=== PATIENT | female | born 1950 | race Native Hawaiian/Other Pacific Islander ===

== ENCOUNTER 2016-06-14 10:36 | Outpatient (CLI) | payer OTHER ==
[~2016-06-14 10:36] MED LIST: AMOX500C85 PO; ANORO ELLIPTA 61 AER IN; ASA LO-DOSE81 MG PO; BENZ100C8 PO; CEFU250T2 PO; CITALOPRAM20 MG PO; CLON1TAB18 PO; DICL1GEL2 TOP; FLUT0.05 NAS; FURO40TA93 PO; FUROSEMIDE80 MG PO; GABA300C2 PO; GLIP10TA55 PO; IMDUR30 MG PO; IPRA18AE INH; LANTUS100 MG/ML SC; LEVO0.0723 PO; NOVOLOG100 MG/ML SC; OMEPRAZOLE20 M1 PO; POTASSIUM CHLO20 MEQ PO; RANO500T PO; SERT100T PO; SIMV40TA57 PO; SPIRIVA IN; WARFARIN10 MG PO; WARFARIN7.5 MG PO; ZOCOR80 MG PO
== END 2016-06-14 19:32 | disposition home or self-care (01) ==
LOC: LABW 10:36
DX: R41.3 Other amnesia (principal)
CPT/HCPCS: 36415; 82607; 82746; 84443; 85651

== ENCOUNTER 2016-09-15 08:13 | Outpatient (CLI) | payer OTHER ==
[2016-09-16] MEDS ORDERED: AMIT10TA21 PO (09:16)
[2016-09-16] MEDS ORDERED: RANITIDINE 150150 MG PO (09:17)
[2016-09-16] MEDS ORDERED: ACYCLOVIR800 MG OR (09:18)
[2016-09-16] MEDS ORDERED: MECLIZINE25 MG OR (09:19)
[2016-09-16] MEDS ORDERED: FORTAMET500 MG PO (09:19)
[2016-09-16] MEDS ORDERED: TRULICITY0.75 MG/0. SC (09:25)
== END 2016-09-15 08:21 | disposition short-term general hospital (02) ==
LOC: AMB 08:13
DX: R07.89 Other chest pain (principal); R06.02 Shortness of breath
CPT/HCPCS: A0425; A0427

== ENCOUNTER 2016-09-16 08:24 | Observation (INO) | payer OTHER ==
[~2016-09-16] VITALS: Ht 170.2 cm; Wt 80.3 kg
[2016-09-16] VITALS (7 sets, daily range): BP systolic 131–174; BP diastolic 47–81; TEMP 97.7–98.5; Ht 170.2 cm; Wt 80.3 kg
[2016-09-16 08:34] LABS: PLATELET COUNT 214 K/uL (152-353)
[2016-09-16 08:43] LABS: POTASSIUM 4.1 mmol/L (3.6-5.2); SODIUM 139 mmol/L (136-145)
[2016-09-16 09:04] LABS: PARTIAL THROMBOPLASTIN TIME 32.2 SECONDS (24.5-33.6)
[2016-09-16] MEDS ORDERED: AMIT10TA21 PO (09:16)
[2016-09-16] MEDS ORDERED: RANITIDINE 150150 MG PO (09:17)
[2016-09-16] MEDS ORDERED: ACYCLOVIR800 MG OR (09:18)
[2016-09-16] MEDS ORDERED: FORTAMET500 MG PO (09:19)
[2016-09-16] MEDS ORDERED: MECLIZINE25 MG OR (09:19)
[2016-09-16] MEDS ORDERED: TRULICITY0.75 MG/0. SC (09:25)
--- NOTE | 2016-09-16 16:40 | NUR ---
[employer] SALES REPRESENTATIVE ENTERED PT'S ROOM TO DO EKG DUE AT 1600 AND PT SAID SHE DID NOT WANT AN EKG DONE BECAUSE THERE IS NOTHING WRONG WITH HER HEART AND SHE JUST WANTS TO GO HOME. NURSE WAS NOTIFIED AND GOING TO CALL DR. WALKER.
== END 2016-09-16 17:10 | disposition home or self-care (01) ==
LOC: ED 08:24 → MED/SURG 10:10
DX: R07.89 Other chest pain (principal); I51.7 Cardiomegaly; E11.9 Type 2 diabetes mellitus without complications
CPT/HCPCS: 36415; 80053; 82550; 82948; 84484; 85027; 85610; 85730; 93005; 99220; 99284; G0378; J1650

== ENCOUNTER 2016-10-08 07:52 | Outpatient (CLI) | payer OTHER ==
[~2016-10-08 07:52] MED LIST changes: +ACYCLOVIR800 MG OR; +AMIT10TA21 PO; +FORTAMET500 MG PO; +MECLIZINE25 MG OR; +RANITIDINE 150150 MG PO; +TRULICITY0.75 MG/0. SC
== END 2016-10-08 09:00 | disposition home or self-care (01) ==
LOC: MRI 07:52
DX: I65.22 Occlusion and stenosis of left carotid artery (principal)

== ENCOUNTER 2017-01-01 13:56 | Outpatient (CLI) | payer OTHER ==
[2017-01-01 14:18] LABS: PLATELET COUNT 220 K/uL (152-353)
[2017-01-01 14:25] LABS: POTASSIUM 4.5 mmol/L (3.6-5.2)
== END 2017-01-01 15:00 | disposition home or self-care (01) ==
LOC: LABW 13:56
PROVIDERS: Internal Medicine Hematology & Oncology
DX: I26.99 Other pulmonary embolism without acute cor pulmonale (principal)
CPT/HCPCS: 36415; 80053; 85027

== ENCOUNTER 2017-02-25 14:37 | Outpatient (CLI) | payer OTHER | END 2017-02-25 16:00 | disposition home or self-care (01) | LOC: MRI 14:37 | DX: R29.810 Facial weakness (principal) ==

== ENCOUNTER 2017-05-25 04:50 | Outpatient (CLI) | payer OTHER | END 2017-05-25 04:58 | disposition short-term general hospital (02) | LOC: AMB 04:50 | DX: R11.2 Nausea with vomiting, unspecified (principal); R19.7 Diarrhea, unspecified; R10.84 Generalized abdominal pain | CPT/HCPCS: A0425; A0427 ==

== ENCOUNTER 2017-05-25 05:04 | Emergency (ER) | payer OTHER ==
[~2017-05-25] VITALS: Ht 170.2 cm; Wt 81.2 kg
[2017-05-25 05:57] LABS: PLATELET COUNT 269 K/uL (152-353)
[2017-05-25 07:53] VITALS: BP 150/74; TEMP 97.4
== END 2017-05-25 08:20 | disposition home or self-care (01) ==
LOC: ED 05:04
PROVIDERS: Specialist
DX: R11.2 Nausea with vomiting, unspecified (principal); R19.7 Diarrhea, unspecified; R10.84 Generalized abdominal pain; R06.09 Other forms of dyspnea
CPT/HCPCS: 36415; 80053; 85027; 94664; 96365; 99284; J2550

== ENCOUNTER 2017-05-31 11:12 | Outpatient (CLI) | payer OTHER | END 2017-05-31 19:39 | disposition home or self-care (01) | LOC: RAD 11:12 | DX: M62.838 Other muscle spasm (principal) ==

== ENCOUNTER 2017-07-12 08:08 | Outpatient (CLI) | payer OTHER | END 2017-07-12 19:01 | disposition home or self-care (01) | LOC: CT 08:08 | DX: I65.29 Occlusion and stenosis of unspecified carotid artery (principal) | CPT/HCPCS: 36415; 82565; 84520; Q9963 ==

== ENCOUNTER 2017-07-25 11:41 | Outpatient (CLI) | payer OTHER ==
[2017-07-25 12:26] LABS: PLATELET COUNT 195 K/uL (152-353)
== END 2017-07-25 19:33 | disposition home or self-care (01) ==
LOC: LABW 11:41
PROVIDERS: Internal Medicine Hematology & Oncology
DX: I26.99 Other pulmonary embolism without acute cor pulmonale (principal)
CPT/HCPCS: 36415; 80053; 85027

== ENCOUNTER 2017-08-26 08:11 | Outpatient (CLI) | payer OTHER | END 2017-08-26 21:17 | disposition home or self-care (01) | LOC: RAD 08:11 | DX: J44.9 Chronic obstructive pulmonary disease, unspecified (principal) ==

== ENCOUNTER 2017-09-18 15:19 | Outpatient (CLI) | payer OTHER | END 2017-09-18 22:31 | disposition home or self-care (01) | LOC: RAD 15:19 | DX: M25.512 Pain in left shoulder (principal) ==

== ENCOUNTER 2017-09-28 11:11 | Outpatient (CLI) | payer OTHER | END 2017-09-28 22:52 | disposition home or self-care (01) | LOC: RAD 11:11 | DX: M25.512 Pain in left shoulder (principal) ==

== ENCOUNTER 2018-01-01 12:38 | Outpatient (CLI) | payer OTHER | END 2018-01-01 19:41 | disposition home or self-care (01) | LOC: RESP 12:38 | DX: G56.03 Carpal tunnel syndrome, bilateral upper limbs (principal); G56.23 Lesion of ulnar nerve, bilateral upper limbs; G60.8 Other hereditary and idiopathic neuropathies | CPT/HCPCS: 95913 ==

== ENCOUNTER 2018-01-03 10:07 | Outpatient (CLI) | payer OTHER | END 2018-01-03 22:17 | disposition home or self-care (01) | LOC: RAD 10:07 | DX: J44.1 Chronic obstructive pulmonary disease with (acute) exacerbation (principal) ==

== ENCOUNTER 2018-01-27 10:48 | Outpatient (CLI) | payer OTHER | END 2018-01-27 19:19 | disposition home or self-care (01) | LOC: MAMMO 10:48 | DX: Z12.31 Encounter for screening mammogram for malignant neoplasm of breast (principal) ==

== ENCOUNTER 2018-02-17 11:51 | Outpatient (CLI) | payer OTHER ==
[2018-02-17 13:02] LABS: PLATELET COUNT 240 K/uL (152-353)
[2018-02-17 13:14] LABS: POTASSIUM 4.1 mmol/L (3.6-5.2)
== END 2018-02-17 19:24 | disposition home or self-care (01) ==
LOC: LABW 11:51
PROVIDERS: Internal Medicine Medical Oncology
DX: I82.409 Acute embolism and thrombosis of unspecified deep veins of unspecified lower extremity (principal)
CPT/HCPCS: 36415; 80053; 85027

== ENCOUNTER 2018-06-24 13:28 | Outpatient (CLI) | payer OTHER ==
[~2018-06-24] VITALS: Ht 170.2 cm; Wt 75.3 kg
[2018-06-24 14:15] VITALS: BP 139/64; TEMP 98.4
== END 2018-06-24 15:08 | disposition home or self-care (01) ==
LOC: INF 13:28
DX: N30.80 Other cystitis without hematuria (principal)
CPT/HCPCS: 96365; J0696

== ENCOUNTER 2018-06-25 08:45 | Outpatient (CLI) | payer OTHER ==
[~2018-06-25] VITALS: Ht 170.2 cm; Wt 75.3 kg
[2018-06-25 09:40] VITALS: BP 142/56; TEMP 98.1
== END 2018-06-25 11:40 | disposition home or self-care (01) ==
LOC: INF 08:45
DX: K86.2 Cyst of pancreas (principal)
CPT/HCPCS: 96365; A9576; J0696

== ENCOUNTER 2018-06-27 09:12 | Outpatient (CLI) | payer OTHER ==
[~2018-06-27] VITALS: Ht 170.2 cm; Wt 75.3 kg
[2018-06-27 09:40] VITALS: BP 130/65; TEMP 97.7
== END 2018-06-27 10:33 | disposition home or self-care (01) ==
LOC: INF 09:12
DX: N30.80 Other cystitis without hematuria (principal)
CPT/HCPCS: 96365; J0696

== ENCOUNTER 2018-06-28 09:40 | Outpatient (CLI) | payer OTHER | END 2018-06-28 11:08 | disposition home or self-care (01) | LOC: INF 09:40 | DX: N30.80 Other cystitis without hematuria (principal) | CPT/HCPCS: 96365; J0696 ==

== ENCOUNTER 2018-08-14 15:09 | Outpatient (CLI) | payer OTHER ==
[2018-08-14 15:28] LABS: PLATELET COUNT 194 K/uL (152-353)
[2018-08-14 15:38] LABS: POTASSIUM 4.4 mmol/L (3.6-5.2)
== END 2018-08-14 19:43 | disposition home or self-care (01) ==
LOC: LABW 15:09
PROVIDERS: Nurse Practitioner Family
DX: I82.409 Acute embolism and thrombosis of unspecified deep veins of unspecified lower extremity (principal)
CPT/HCPCS: 36415; 80053; 85027

== ENCOUNTER 2018-09-01 10:24 | Outpatient (CLI) | payer OTHER | END 2018-09-01 19:19 | disposition home or self-care (01) | LOC: RAD 10:24 | DX: R05 Cough (principal) ==

== ENCOUNTER 2019-02-17 09:33 | Outpatient (CLI) | payer OTHER ==
[2019-02-17 09:56] LABS: PLATELET COUNT 198 K/uL (152-353)
[2019-02-17 10:02] LABS: POTASSIUM 4.3 mmol/L (3.6-5.2)
== END 2019-02-17 20:33 | disposition home or self-care (01) ==
LOC: LABW 09:33
PROVIDERS: Internal Medicine Medical Oncology
DX: I82.409 Acute embolism and thrombosis of unspecified deep veins of unspecified lower extremity (principal)
CPT/HCPCS: 36415; 80053; 85027

== ENCOUNTER 2019-03-19 14:43 | Emergency (ER) | payer OTHER ==
[~2019-03-19] VITALS: Ht 172.7 cm; Wt 73.5 kg
[2019-03-19 15:46] LABS: PLATELET COUNT 225 K/uL (152-353)
[2019-03-19 16:06] LABS: PARTIAL THROMBOPLASTIN TIME 25.8 SECONDS (24.5-33.6)
[2019-03-19 16:10] LABS: POTASSIUM 4.2 mmol/L (3.6-5.2)
[2019-03-19 20:10] VITALS: BP 125/74; TEMP 97.6
== END 2019-03-19 20:10 | disposition short-term general hospital (02) ==
LOC: ED 14:43
PROVIDERS: Student in an Organized Health Care Education/Training Program
DX: I21.4 Non-ST elevation (NSTEMI) myocardial infarction (principal); I50.9 Heart failure, unspecified; J44.1 Chronic obstructive pulmonary disease with (acute) exacerbation; I49.8 Other specified cardiac arrhythmias; F17.210 Nicotine dependence, cigarettes, uncomplicated
CPT/HCPCS: 36415; 80048; 83735; 83880; 84484; 85027; 85610; 85730; 93005; 94664; 96374; 99284; J1940; Q9963

== ENCOUNTER 2019-03-19 20:12 | Outpatient (CLI) | payer OTHER | END 2019-03-19 20:41 | disposition short-term general hospital (02) | LOC: AMB 20:12 | DX: R06.02 Shortness of breath (principal); R74.8 Abnormal levels of other serum enzymes; I21.4 Non-ST elevation (NSTEMI) myocardial infarction; I50.9 Heart failure, unspecified; J44.9 Chronic obstructive pulmonary disease, unspecified | CPT/HCPCS: A0425; A0427 ==

== ENCOUNTER 2019-05-14 19:30 | Outpatient (CLI) | payer OTHER | END 2019-05-14 19:38 | disposition short-term general hospital (02) | LOC: AMB 19:30 | DX: R07.89 Other chest pain (principal); R68.84 Jaw pain; M79.601 Pain in right arm; R73.9 Hyperglycemia, unspecified | CPT/HCPCS: A0425; A0427 ==

== ENCOUNTER 2019-05-14 19:37 | Emergency (ER) | payer OTHER ==
[~2019-05-14] VITALS: Ht 172.7 cm; Wt 73.5 kg
[2019-05-14 19:59] LABS: PLATELET COUNT 263 K/uL (152-353)
[2019-05-14 20:07] LABS: POTASSIUM 4.8 mmol/L (3.6-5.2)
[2019-05-14 20:32] LABS: PARTIAL THROMBOPLASTIN TIME 23.7 SECONDS (24.5-33.6)
[2019-05-15 00:15] VITALS: BP 123/64; TEMP 98
== END 2019-05-15 00:15 | disposition short-term general hospital (02) ==
LOC: ED 19:37
PROVIDERS: Student in an Organized Health Care Education/Training Program
PROC: 30233N1 Transfusion of Nonautologous Red Blood Cells into Peripheral Vein, Percutaneous Approach (ICD-10-PCS; principal; 2019-05-14)
DX: D64.89 Other specified anemias (principal); R07.89 Other chest pain; R06.02 Shortness of breath; R00.0 Tachycardia, unspecified
CPT/HCPCS: 36430; 80053; 82272; 82550; 82962; 83605; 83735; 84484; 85027; 85610; 85730; 86850; 86900; 86901; 86922; 87040; 87502; 93005; 94664; 96360; 96375; 99284; J3490; P9016

== ENCOUNTER 2019-05-15 00:23 | Outpatient (CLI) | payer OTHER | END 2019-05-15 01:00 | disposition short-term general hospital (02) | LOC: AMB 00:23 | DX: D64.89 Other specified anemias (principal); R07.89 Other chest pain; R94.31 Abnormal electrocardiogram [ECG] [EKG] | CPT/HCPCS: A0425; A0427 ==

== ENCOUNTER 2019-05-26 09:13 | Emergency (ER) | payer OTHER ==
[~2019-05-26] VITALS: Ht 172.7 cm; Wt 73.5 kg
[2019-05-26 09:58] LABS: PLATELET COUNT 270 K/uL (152-353)
[2019-05-26 10:11] LABS: POTASSIUM 4.8 mmol/L (3.6-5.2)
[2019-05-26 12:40] VITALS: BP 96/42; TEMP 97.9
== END 2019-05-26 12:40 | disposition short-term general hospital (02) ==
LOC: ED 09:13
PROVIDERS: Family Medicine
DX: D64.89 Other specified anemias (principal); E87.1 Hypo-osmolality and hyponatremia; R53.83 Other fatigue
CPT/HCPCS: 36415; 80053; 85027; 96360; 99284

== ENCOUNTER 2019-05-26 12:49 | Outpatient (CLI) | payer OTHER | END 2019-05-26 13:40 | disposition short-term general hospital (02) | LOC: AMB 12:49 | DX: D64.89 Other specified anemias (principal); E87.1 Hypo-osmolality and hyponatremia | CPT/HCPCS: A0425; A0427 ==

== ENCOUNTER 2019-06-22 23:42 | Emergency (ER) | payer OTHER ==
[~2019-06-22] VITALS: Ht 170.2 cm; Wt 75.3 kg
[2019-06-23 00:40] LABS: PLATELET COUNT 413 K/uL (152-353)
[2019-06-23 00:55] LABS: POTASSIUM 3.8 mmol/L (3.6-5.2); SODIUM 135 mmol/L (136-145)
[2019-06-23 01:01] LABS: PARTIAL THROMBOPLASTIN TIME 31.4 SECONDS (24.5-33.6)
[2019-06-23 02:37] VITALS: BP 141/70; TEMP 98.5
== END 2019-06-23 02:37 | disposition short-term general hospital (02) ==
LOC: ED 23:42
PROVIDERS: Student in an Organized Health Care Education/Training Program
DX: R09.89 Other specified symptoms and signs involving the circulatory and respiratory systems (principal); M79.671 Pain in right foot; G89.18 Other acute postprocedural pain
CPT/HCPCS: 36415; 80048; 83605; 83735; 83880; 84484; 85027; 85610; 85651; 85730; 86140; 87040; 93005; 96365; 99284; J3370

== ENCOUNTER 2019-09-29 09:19 | Inpatient (IN) | payer OTHER ==
[~2019-09-29] VITALS: Ht 170.2 cm; Wt 68.6 kg
[2019-09-29] VITALS (8 sets, daily range): BP systolic 107–123; BP diastolic 49–78; TEMP 96–98.3; Ht 170.2 cm; Wt 68.6 kg
[2019-09-29 10:36] LABS: PLATELET COUNT 192 K/uL (152-353)
[2019-09-29 10:37] LABS: POTASSIUM 3.1 mmol/L (3.6-5.2)
[2019-09-29 13:48] LABS: PLATELET COUNT 199 K/uL (152-353)
[2019-09-29 13:54] LABS: POTASSIUM 3.6 mmol/L (3.6-5.2); SODIUM 138 mmol/L (136-145)
[2019-09-29 14:05] LABS: PARTIAL THROMBOPLASTIN TIME 28.1 SECONDS (24.5-33.6)
[2019-09-30] VITALS (7 sets, daily range): BP systolic 95–131; BP diastolic 46–70; TEMP 97.9–99.3
[2019-09-30] MEDS ORDERED: ELIQUIS5 MG PO (10:30)
[2019-09-30] MEDS ORDERED: TRULICITY0.75 MG/0. SC (10:31)
[2019-09-30] MEDS ORDERED: ANORO ELLIPTA 61 AER INH (10:32)
[2019-09-30] MEDS ORDERED: FERROUS SULF325 M1 PO (10:33)
[2019-09-30] MEDS ORDERED: PANTOPRAZOLE 40MG TA PO (10:34)
[2019-09-30] MEDS ORDERED: ONDA4TAB3 PO (10:37)
[2019-09-30] MEDS ORDERED: REMERON SOLTAB15 MG PO (10:37)
[2019-09-30] MEDS ORDERED: BASAGLAR K100 UNIT/M SC (10:39)
[2019-10-01 04:00] VITALS: BP 125/64; TEMP 98.8
[2019-10-01 08:00] VITALS: BP 128/70; TEMP 97.9
[2019-10-01 11:44] LABS: POTASSIUM 4.3 mmol/L (3.6-5.2)
[2019-10-01 11:46] LABS: PLATELET COUNT 185 K/uL (152-353)
[2019-10-01 12:00] VITALS: BP 115/73; TEMP 98.6
[2019-10-01 16:00] VITALS: BP 117/72; TEMP 98.6
[2019-10-01 18:00] VITALS: BP 117/72; TEMP 98.6
[2019-10-02 00:05] VITALS: BP 109/52; TEMP 98.8
[2019-10-02 04:19] VITALS: BP 125/70; TEMP 98.3
[2019-10-02 04:30] LABS: POTASSIUM 4.2 mmol/L (3.6-5.2)
[2019-10-02 04:54] LABS: PLATELET COUNT 187 K/uL (152-353)
[2019-10-02 12:00] VITALS: BP 161/67; TEMP 98.8
[2019-10-02 16:00] VITALS: BP 127/73; TEMP 98.1
[2019-10-02 20:00] VITALS: BP 123/62; TEMP 98.9
[2019-10-03] VITALS: BP 93/59; TEMP 97.5
== END 2019-10-03 00:49 | disposition expired | DRG 871 ==
LOC: ED 09:19 → MED/SURG 11:52 → UNDODEPER 09-30 14:02 → MED/SURG 10-03 00:49
PROVIDERS: Family Medicine; ADMIT Family Medicine
PROC: 5A12012 Performance of Cardiac Output, Single, Manual (ICD-10-PCS; principal; 2019-10-03)
DX: A41.89 Other specified sepsis (principal); J18.8 Other pneumonia, unspecified organism; J44.0 Chronic obstructive pulmonary disease with (acute) lower respiratory infection; N39.0 Urinary tract infection, site not specified; I82.409 Acute embolism and thrombosis of unspecified deep veins of unspecified lower extremity; I50.22 Chronic systolic (congestive) heart failure; I11.0 Hypertensive heart disease with heart failure; E11.649 Type 2 diabetes mellitus with hypoglycemia without coma; T68.XXXA Hypothermia, initial encounter; Z86.73 Personal history of transient ischemic attack (TIA), and cerebral infarction without residual deficits; Z91.14 Patient's other noncompliance with medication regimen; R15.9 Full incontinence of feces; K59.09 Other constipation; N39.498 Other specified urinary incontinence; F32.89 Other specified depressive episodes; Z89.611 Acquired absence of right leg above knee; L89.152 Pressure ulcer of sacral region, stage 2; M79.7 Fibromyalgia; E03.8 Other specified hypothyroidism; G51.0 Bell's palsy; I25.2 Old myocardial infarction; E87.6 Hypokalemia; I46.9 Cardiac arrest, cause unspecified
CPT/HCPCS: 36415; 80053; 81000; 82550; 82947; 82962; 83605; 83735; 83880; 84100; 84484; 85027; 85610; 85730; 87040; 87077; 87086; 87088; 87185; 87186; 87635; 92950; 93005; 94668; 96360; 96361; 96375; 99284; J0456; J0696; J1940; J2020; J3475; J3480; J7060; U0002